=== PATIENT | female | born 1990 | race Caucasian/White ===

== ENCOUNTER 2023-12-20 10:18 | Inpatient (IN) | payer OTHER ==
[~2023-12-20] VITALS: Ht 162.6 cm; Wt 95.7 kg
--- NOTE | ~2023-12-20 | OR ---
[facility] [address] [place], [place] [address] Draft DATE OF OPERATION: 03/20/2024 SURGEON: Chris Escamilla DO PREOPERATIVE DIAGNOSES: 1. Term . 2. History of prior . 3. History of low-lying placenta. POSTOPERATIVE DIAGNOSES: 1. Term . 2. History of prior . 3. History of low-lying placenta. PROCEDURE PERFORMED: Repeat low transverse delivery. ANALYTICAL DATA MINER: Marla Fitzgerald M.D. ANESTHESIA: Spinal with postoperative TAP block. ESTIMATED BLOOD LOSS: 700 mL. DRAINS: Trinh to gravity. COMPLICATIONS: None. SPECIMENS: Cord blood for routine analysis. FINDINGS: Delivery of a viable male , 9 pounds 3 ounces with Apgars of 7 and 9 in the LOT position with clear fluid. Placenta delivered easily without any evidence of pathologic classification. Normal uterus, tubes, and ovaries. PATIENT NAME: MAGDI BETANCUR OPERATIVE REPORT DATE OF : [birth year] REPORT #: [id number] PHYSICIAN: CHRIS ESCAMILLA DO (JD) PCP: NO PRIMARY CARE PHYSICIAN REPORT IS CONFIDENTIAL AND NOT TO BE RELEASED WITHOUT AUTHORIZATION [facility] [address] [place] [id number] Draft INDICATIONS: Mrs. Betancur is a very pleasant 33-year-old, G4, P3, with IUP at 39 weeks' gestation, who presented for repeat low transverse delivery. Risks, benefits, and alternatives were discussed in detail with the patient. The patient understands and wishes to proceed with the procedure. DESCRIPTION OF PROCEDURE: The patient was taken to the OR. Time-out was performed to confirm correct patient, correct procedure. Spinal anesthesia was adequately established. The patient was prepped and draped in the supine position with a bump on right hip. ICPs were on and running and a Trinh catheter was inserted. The patient received Ancef 2 g preoperatively and no heparin was indicated. Once spinal was noted to be adequate, a Pfannenstiel skin incision was made through the prior scar and carried down to the fascia. The fascia was nicked in the midline and fascial incision was extended bilaterally using curved Mcgarry scissors. The fascia was grasped with Ramon's, elevated, and the underlying rectus dissected off bluntly and sharply. The rectus was divided in the midline and the peritoneum was entered sharply. Peritoneal incision was extended cephalad, caudad using sharp and blunt dissection. An Lenny self retractor was placed. The lower uterine segment was identified and appeared normal. Hysterotomy was performed using a surgical scalpel. Clear fluid was returned. Hysterotomy was extended bilaterally using blunt dissection. The head was elevated and the abdomen delivered with the assistance of fundal pressure in the LOT position. delivered easily and was vigorous and cried upon delivery. Cord was doubly clamped and cut. The handed to the waiting pediatric team for further care. Cord blood was obtained for routine analysis. The placenta was expressed, intact with a centrally inserted three-vessel cord. The uterus was cleared of any remaining products of conception or clot and Pitocin was administered per protocol. Some brisk bleeding was noted from the left apex of the incision and this was made hemostatic with a clamp. Hysterotomy was then repaired in two layers using 0-Monocryl. The first layer was a running locked layer and the second was a running imbricating layer in the vertical manner with excellent hemostasis appreciated. The pelvis was irrigated and found to be hemostatic. Normal uterus, tubes, and ovaries were appreciated. Once hemostasis was appreciated, the peritoneum was reapproximated using 2-0 Vicryl in a running nonlocked manner. Rectus was made hemostatic with judicious use of Bovie electrocautery. It was carefully plicated loosely in the midline with three interrupted sutures of 0-Vicryl. Fascia was then reapproximated using 0-Vicryl in a running nonlocked manner. Subcu was irrigated, made hemostatic with judicious use of Bovie electrocautery. It was plicated using 3-0 Vicryl. Skin was then reapproximated using surgical ghanshyam. The uterus was Crede'd for a scant amount of blood and the patient remained in the OR for postoperative TAP blocks. Sponge, needle, and instrument counts were correct x2 at the end of the procedure. PATIENT NAME: MAGDI BETANCUR OPERATIVE REPORT DATE OF : [birth year] REPORT #: [id number] PHYSICIAN: CHRIS ESCAMILLA (TRUDY) DO PCP: NO PRIMARY CARE PHYSICIAN REPORT IS CONFIDENTIAL AND NOT TO BE RELEASED WITHOUT AUTHORIZATION [facility] [address] [place], [place] [address] Larry Fitzgerald was present and participated in all portions of the procedure. Chris Escamilla DO JADALBERTO/MODL /[id number] Copies: ~ PATIENT NAME: MAGDI BETANCUR OPERATIVE REPORT DATE OF : [birth year] REPORT #: [id number] PHYSICIAN: CHRIS ESCAMILLA DO (JD) PCP: NO PRIMARY CARE PHYSICIAN REPORT IS CONFIDENTIAL AND NOT TO BE RELEASED WITHOUT AUTHORIZATION
[2024-03-19] MEDS ORDERED: LACTATED RINGER'S 2,000 ML IV PRN (16:00)
[2024-03-19] MEDS ORDERED: LACTATED RINGER'S 1,000 ML IV SCH (16:00)
[2024-03-20] MEDS ORDERED: LACTATED RINGER'S 1,000 ML IV SCH ×2 (05:00→08:27)
[2024-03-20] MEDS ORDERED: LACTATED RINGER'S 1,000 ML IV PRN (05:30)
[2024-03-20 06:00] LABS: HEMATOCRIT 33.1 % (35.0-50.0); MCH 27.1 (27-36); MCHC 33.1 g/dl (30-36); MCV 81.7 fl (81-99); RBC 4.05 M/ul (4.3-5.7)
[2024-03-20 06:22] VITALS: BP 133/94
[2024-03-20 06:26] LABS: AMPHETAMINES, URINE NEGATIVE (NEGATIVE); BARBITURATES, URINE NEGATIVE (NEGATIVE); BENZODIAZEPINE, URINE NEGATIVE (NEGATIVE); BUPRENORPHINE, URINE NEGATIVE (NEGATIVE); CANNABINOID, URINE NEGATIVE (NEGATIVE); COCAINE, URINE NEGATIVE (NEGATIVE); ECSTASY, URINE NEGATIVE (NEGATIVE); FENTANYL, URINE NEGATIVE (NEGATIVE); METHADONE, URINE NEGATIVE (NEGATIVE); OPIATES, URINE NEGATIVE (NEGATIVE); OXYCODONE, URINE NEGATIVE (NEGATIVE); PHENCYCLIDINE, URINE NEGATIVE (NEGATIVE)
[2024-03-20 06:42] LABS: ABO A; ANTIBODY SCREEN NEGATIVE; RH POSITIVE
[2024-03-20] MEDS ORDERED: CEFAZOLIN SODIUM 2 GM/20 ML SYR IV SCH (07:00)
[2024-03-20] MEDS ORDERED: LIDOCAINE HCL 1% 5 ML SDV INJ ONE (07:00)
[2024-03-20] MEDS ORDERED: IBLOOD GLUCOSE TEST STRIP 1 EA TEST VI PRN (07:00)
[2024-03-20] MEDS ORDERED: SOD+POT BICARB/CITRIC ACID 2 EA TABLET.EFF PO SCH (07:00)
[2024-03-20] MEDS ORDERED: BUPIVACAINE 0.75% IN DEXTROSE 2 ML AMP ONE (07:02)
[2024-03-20] MEDS ORDERED: ondansetron HCL 4 MG/2 ML VIAL ONE (07:02)
[2024-03-20] MEDS ORDERED: MORPHINE SULFATE 1 MG/ML VIAL ONE (07:02)
[2024-03-20] MEDS ORDERED: OXYTOCIN 10 UNITS/ML VIAL ONE ×2 (07:02→07:56)
[2024-03-20] MEDS ORDERED: LIDOCAINE HCL 2% 5 ML SDV ONE (07:02)
[2024-03-20] MEDS ORDERED: fentaNYL citrate 100 MCG/2 ML VIAL ONE (07:02)
[2024-03-20] MEDS ORDERED: Ropivacaine HCl 0.5% 30 ML VIAL ONE (07:09)
[2024-03-20] MEDS ORDERED: DEXAMETHASONE SOD PHOS 4 MG/ML VIAL ONE ×2 (07:09)
[2024-03-20] MEDS ORDERED: SODIUM CHLORIDE 0.9% 20 ML IV ONE (07:09)
[2024-03-20] MEDS ORDERED: PHENYLEPHRINE HCL 10 MG/ML VIAL ONE (07:32)
[2024-03-20] MEDS ORDERED: ePHEDrine sulfate 50 MG/ML AMP ONE (07:37)
[2024-03-20] MEDS ORDERED: METOCLOPRAMIDE HCL 10 MG/2 ML SDV ONE (07:47)
[2024-03-20] MEDS ORDERED: dexmedeTOMIDine HCl 200 MCG/2 ML VIAL ONE (08:05)
[2024-03-20] MEDS ORDERED: ondansetron HCL 4 MG/2 ML VIAL IV PRN ×2 (08:15→08:30)
[2024-03-20] MEDS ORDERED: HYDROmorphone HCL 1 MG/ML SYR IV PRN (08:15)
[2024-03-20] MEDS ORDERED: KETOROLAC TROMETHAMINE 30 MG/ML VIAL IV PRN (08:15)
[2024-03-20] MEDS ORDERED: NALOXONE HCL 0.4 MG SYR IV PRN (08:15)
[2024-03-20] MEDS ORDERED: diphenhydrAMINE HCL 50 MG/ML VIAL IV PRN (08:15)
[2024-03-20] MEDS ORDERED: PROCHLORPERAZINE EDISYLATE 10 MG/2 ML VIAL IV PRN ×2 (08:15→08:30)
[2024-03-20] MEDS ORDERED: PROMETHAZINE HCL 25 MG SUPP PR PRN (08:30)
[2024-03-20] MEDS ORDERED: OXYCODONE HCL 5 MG TAB PO PRN (08:30)
[2024-03-20] MEDS ORDERED: OXYTOCIN/0.9 % SODIUM CHLORIDE 500 ML IV SCH (08:30)
[2024-03-20] MEDS ORDERED: METOCLOPRAMIDE HCL 10 MG/2 ML SDV IV PRN (08:30)
[2024-03-20] MEDS ORDERED: bisacodyL 10 MG SUPP PR PRN (08:30)
[2024-03-20] MEDS ORDERED: PROMETHAZINE HCL 25 MG TAB PO PRN (08:30)
[2024-03-20] MEDS ORDERED: LIDOCAINE 2% VISCOUS 6 ML SYR TOP ONE (08:30)
--- NOTE | 2024-03-20 08:42 | NUR ---
03/20/24 0842 Mary Carmen Pena 8792-PATIENT ARRIVED TO ROOM 104 FOR RECOVERY. PATIENT AWAKE DENIES PAIN OR NAUSEA. SPINAL LEVEL AT L1. DRESSING TO ABDOMEN CDI. SINUS BRADYCARDIA HR UPPER 50'S. BLAKE CATHETER DRAINING YELLOW URINE. FUNDUS AT UMBILICUS RIGHT SIDE FIRM LIGHT RUBRA DRAINAGE. CALL LIGHT IN REACH. FRIEND AT BEDSIDE. BABY AND DAD IN NURSERY.
[2024-03-20] MEDS ORDERED: SENNOSIDES/DOCUSATE 1 EA TAB PO SCH (09:00)
[2024-03-20 09:13] VITALS: BP 137/78
[2024-03-20] MEDS ORDERED: ACETAMINOPHEN 500 MG TAB PO SCH (10:00)
[2024-03-20] MEDS ORDERED: SIMETHICONE 125 MG TABLET CHEWABLE PO SCH (11:00)
[2024-03-20] MEDS ORDERED: KETOROLAC TROMETHAMINE 30 MG/ML VIAL IV SCH (14:00)
[2024-03-20] MEDS ORDERED: ENOXAPARIN SODIUM 40 MG/0.4 ML SYR SUB-Q SCH (21:00)
[2024-03-21 06:19] LABS: HEMATOCRIT 27.4 % (35.0-50.0); HEMOGLOBIN 9.1 g/dL (12.0-18.0); MCH 27.3 (27-36); MCHC 33.2 g/dl (30-36); MCV 82.1 fl (81-99); RBC 3.33 M/ul (4.3-5.7); RDW 14.2 (10.5-15.0)
[2024-03-21] MEDS ORDERED: KETOROLAC TROMETHAMINE 30 MG/ML VIAL IV SCH (10:00)
[2024-03-21] MEDS ORDERED: ACETAMINOPHEN 500 MG TAB PO SCH (12:00)
--- NOTE | 2024-03-21 12:51 | PR ---
[facility] [address] [facility] [place], [place] [address] Signed PP Progress Notes Datetime Report Generated by CPN: 03/21/2024 12:51 SUBJECTIVE: [id number] Pain: Within Normal Limits Nausea/Vomiting: Denies Flatus: Yes Bowel Movement: No Vital Signs: [id number] Vital Signs: Reviewed EXAM: Ongoing Cardiovascular: Normal Respiratory: Normal Abdomen/Uterus: Normal Lochia: Normal Vulva/Perineum: Not Done Breasts: Not Done CVA Tenderness: Normal Extremities: Normal Incision: Normal Progress: Normal Exam Comments: Fundus firm U-2 nontender. Incision healing well. IMPRESSION/PLAN/PROCEDURES: [id number] Impression: Normal Progression Plan: Discharge Progress Notes: Pt seen and examined. Doing well. No concerns. Strongly desires d/c home. well. Pain and lochia minimal. Will discharge. Reviewed d/c instructions and meds. Staple removal in office early next week. Signing Physician: Chris Escamilla DO Copies: ~ *Electronically Signed* 03/21/24 1254 CHRIS ESCAMILLA (TRUDY) DO PATIENT NAME: LADMAGDI COELHO PROGRESS NOTE DATE OF : [birth year] PHYSICIAN: CHRIS ESCAMILLA (TRUDY) DO RPT #: [id number] REPORT IS CONFIDENTIAL AND NOT TO BE RELEASED WITHOUT AUTHORIZATION
[2024-03-21] MEDS ORDERED: IBUPROFEN 800 MG TAB PO SCH ×2 (14:00→16:00)
== END 2024-03-21 13:30 | disposition home or self-care (01) | DRG 787 ==
LOC: FBC 03-20 05:08
PROVIDERS: Obstetrics & Gynecology; ADMIT Obstetrics & Gynecology; ATTEND Obstetrics & Gynecology
PROC: 10D00Z1 Extraction of Products of Conception, Low, Open Approach (ICD-10-PCS; principal; 2024-03-20 07:30)
DX: O34.211 Maternal care for low transverse scar from previous cesarean delivery (principal); O98.32 Other infections with a predominantly sexual mode of transmission complicating childbirth; Z3A.39 39 weeks gestation of pregnancy; Z37.0 Single live birth; O99.824 Streptococcus B carrier state complicating childbirth; Z88.1 Allergy status to other antibiotic agents; Z90.89 Acquired absence of other organs; Z98.890 Other specified postprocedural states; A60.00 Herpesviral infection of urogenital system, unspecified
CPT/HCPCS: 01961; 36415; 76942; 80307; 85027; 86850; 86900; 86901; A9270; J0690; J1100; J1650; J1885; J2001; J2274; J2371; J2405; J2590; J2765; J2795; J3010; J7121

== ENCOUNTER 2024-03-30 20:32 | Emergency (ER) | payer OTHER ==
[~2024-03-30] VITALS: Ht 152.4 cm; Wt 86.0 kg
[2024-03-30 21:37] VITALS: BP 126/86
== END 2024-03-30 21:37 | disposition home or self-care (01) ==
LOC: ED 20:32
DX: O90.0 Disruption of cesarean delivery wound (principal); Z88.0 Allergy status to penicillin
CPT/HCPCS: 99282